=== PATIENT | female | born 1985 | race Caucasian/White ===

== ENCOUNTER → 2019-12-20 17:15 | Outpatient (CLI) | payer BC, SELFPAY ==
--- NOTE | ~2019-12-20 | XR_ITS ---
EXAMINATION: XR chest 2V EXAM DATE: 12/20/2019 17:30 INDICATION: Cough since September. TECHNIQUE: Frontal and lateral projections of the chest obtained and reviewed. Comparison is made to prior examination from 12/29/2018. FINDINGS: The lungs are clear. There are no pleural effusions. The cardiomediastinal silhouette is within normal limits. There is no pneumothorax suspected. The bones and soft tissues are unremarkab le. IMPRESSION: Unremarkable chest x-ray exam. Reviewed, dictated and finalized at location A. [employer]
== END ==
PROVIDERS: PCP Family Medicine; Visit Provider Family Medicine
DX: R05 Cough (principal)
CPT/HCPCS: 71046

== ENCOUNTER 2019-12-23 15:46 | Outpatient (CLI) | payer BC, SELFPAY ==
--- NOTE | ~2019-12-23 | CT_ITS ---
EXAMINATION: CT chest high resolution [facility] EXAM DATE: 12/23/2019 16:13 INDICATION: Cough for 3 months, chest pain and shortness of breath. TECHNIQUE: Spiral CT of the chest without contrast. HRCT. Axial, coronal and sagittal images were re viewed. Coronal maximum intensity pixel images of chest reviewed. The dose-length product (DLP) for this examination was 343.72 mGy-cm. The exposure was tailored according to patient size (auto mA ex posure control), and iterative reconstruction (ASIR) was used as additional dose reduction technique. There is no prior study for comparison. FINDINGS: No intralobular septal thickening on the HRCT. There is no focal acute air space disease. There are no pleural or pericardial effusions. Tracheobronchial tree is patent. There is no me diastinal, hilar or axillary lymphadenopathy. There is no pneumothorax. Heart normal in size. N o evidence of coronary arterial calcification. Upper abdomen is unremarkable. There is thoracic sp ondylosis without osteoblastic or osteolytic lesions identified. IMPRESSION: 1. Unremarkable CT chest examination. Reviewed, dictated and finalized at location A. AR RUNNER
== END 2019-12-23 15:47 | disposition home or self-care (01) ==
PROVIDERS: PCP Family Medicine; Visit Provider Family Medicine
DX: R05 Cough (principal)
CPT/HCPCS: 71250

== ENCOUNTER 2020-01-06 12:22 | Outpatient (CLI) | payer BC, SELFPAY ==
--- NOTE | 2020-01-13 12:36 | WPDPFTINT ---
PFT Interpretation PFT Interpretation: DOS: 01/06/2020 REQUESTING: Dr. Phyllis Kelley REASON FOR TESTING: Cough PULMONARY FUNCTION TESTS Results are reproducible. Spirometry: Normal FEV1 107% predicted, normal FVC, normal FEV1%, and no significant change with bronchodilator. Lung volumes: Total lung capacity normal 109%, normal RV, with increased in airway resistance 241% predicted. Diffusion: DLCO is normal 91%. Flow volume loop: Normal. IMPRESSION: Normal study. Mild increased in airway resistance. Lack of response to bronchodilator does not preclude use if clinically indicated. Karon Kimball MD
== END 2020-01-06 12:23 | disposition home or self-care (01) ==
PROVIDERS: PCP Family Medicine; Visit Provider Family Medicine
DX: R05 Cough (principal)
CPT/HCPCS: 94060; 94726; 94729

== ENCOUNTER 2020-05-08 01:07 | Outpatient (CLI) | payer BC, SELFPAY ==
[2020-05-08 19:25] LABS: SARS-CoV-2 RNA PCR Negative
== END 2020-05-08 01:08 | disposition home or self-care (01) ==
LOC: ANHCOVIDDT 01:07
PROVIDERS: PCP Family Medicine; Visit Provider Internal Medicine Gastroenterology
DX: Z01.812 Encounter for preprocedural laboratory examination (principal); Z11.59 Encounter for screening for other viral diseases
CPT/HCPCS: 87635; C9803; U0003

== ENCOUNTER 2020-05-10 00:48 | Day surgery (SDC) | payer BC, SELFPAY ==
[2020-05-03 13:00] VITALS: BMI 31.8
[2020-05-10] MEDS: LACTATED RINGERS 1,000 ML 150 ML IV CONT ×2 (07:27→08:24)
[2020-05-10 07:29] VITALS: BP 139/93; PULSE 97; RESP 17; TEMP 36.5; O2SAT 97; BMI 32.3
--- NOTE | 2020-05-10 07:40 | WPDGICN ---
Assessment and Plan Assessment and plan (1) Epigastric abdominal pain: Code(s): R10.13 - Epigastric pain Status: Acute Assessment and Plan: Patient complains of epigastric plain and bloating. She has been prescribed acid reducing medications with poor response. She only takes this medication as needed. Plan is to evaluate more thoroughly with EGD. Further recommendations will be given after endoscopy. Plan is to exclude GE reflux or gastritis as an etiology. (2) Dysphagia: Code(s): R13.10 - Dysphagia, unspecified Status: Acute Assessment and Plan: Patient reports difficulty swallowing. Food will occasionally catch in the upper portion of the chest on swallowing. This happens more with solids than liquids. Cannot exclude esophageal narrowing plan is for EGD to assess more thoroughly. GI Consult Note Consult date/time: 05/10/20 07:40 HPI: Isa Horn is a 34 year old female seen in evaluation at the request of Dr Phyllis Kelley. Patient reports a 1 year history of epigastric bloating. She also notes food catching the mid substernal portion of the chest. She states this happens more often with solid foods than liquids. She has never had regurgitation. She denies any choking. She has had no bleeding. She has had no weight loss. Family history is noncontributory. Intermittently she is taken acid suppressing medications but only on an as-needed basis. It is presumed that this was Prilosec. Review of Systems Review of Systems: All systems reviewed & are unremarkable except as noted in HPI and below PMFSH Past Medical History Medical History Bronchitis with asthma, subacute Dysphagia Eczema of both external ears Family History Family History Grandparent Depression Family history of bipolar disorder Family history of malignant neoplasm Sibling Depression Other Cerebrovascular accident Diabetes mellitus Family history of cardiovascular disease Family history of kidney disease Family history of thyroid disease Hypertension Social History Social History Smoking status: Never smoker Alcohol intake: never Meds Home Medications and Allergies Home Medications Medication Instructions Recorded Confirmed Type levothyroxine 112 mcg tablet 112 mcg PO DAILY #90 tablet 01/27/20 05/10/20 Rx escitalopram oxalate 10 mg tablet 10 mg PO DAILY #90 tablet 03/29/20 05/10/20 Rx albuterol sulfate 1 puff INHALATION QID PRN 05/03/20 05/10/20 History twueixcifpx-dauwnzkqy-rwweavtu 1 inh INHALATION DAILY 05/03/20 05/10/20 History [Trelegy Ellipta] Allergies Allergy/AdvReac Type Severity Reaction Status Date / Time No Known Allergies Allergy Verified 05/10/20 07:11 Vital Signs Vital Signs - 24 hr 05/10/20 07:29 Temperature 97.7 F Pulse Rate 97 Respiratory Rate 17 Blood Pressure 139/93 H Pulse Oximetry 97 Exam Narrative: Exam Narrative: Physical exam reveals patient to be alert. Vital signs stable. HEENT exam unremarkable. Lungs are clear to auscultation and percussion. Heart is without murmur or extra sounds. Abdominal exam bowel sounds are present soft nontender with no hepatosplenomegaly. Digital rectal exam is deferred at this time.
--- NOTE | 2020-05-10 08:09 | P.PNAN_ITS ---
Anes - Initial Pre Proc Eval Procedure: Operation Date: 05/10/20 08:30 Proposed Procedures p Esophagogastroduodenoscopy - Jesse Altamirano MD Date/Time: 05/10/20 08:09 Surgeon: Jesse Altamirano MD Pre Op Diagnosis: Dysphagia Patient Data Age: 34 Gender: F Height: 1.63 m Weight: 85.4 kg Last Vital Signs Temp 36.5 C 05/10/20 07:29 Pulse 97 05/10/20 07:29 Resp 17 05/10/20 07:29 BP 139/93 H 05/10/20 07:29 Pulse Ox 97 05/10/20 07:29 Allergies Allergy/AdvReac Type Severity Reaction Status Date / Time No Known Allergies Allergy Verified 05/10/20 07:11 Home Medications Medication Instructions Recorded Confirmed Type levothyroxine 112 mcg tablet 112 mcg PO DAILY #90 tablet 01/27/20 05/10/20 Rx escitalopram oxalate 10 mg tablet 10 mg PO DAILY #90 tablet 03/29/20 05/10/20 Rx albuterol sulfate 1 puff INHALATION QID PRN 05/03/20 05/10/20 History rrlrxteqndk-yqcnplmej-mcjmjujt 1 inh INHALATION DAILY 05/03/20 05/10/20 History [Trelegy Ellipta] Patient hx anesthesia problems: none Family hx anesthesia problems: none PMFSH Past Medical History Medical History (Updated 05/10/20 @ 08:10 by Jose Eduardo Blake MD) Bronchitis with asthma, subacute Dysphagia Eczema of both external ears GERD with esophagitis Obesity Recurrent mild major depressive disorder with anxiety Family History Family History Grandparent Depression Family history of bipolar disorder Family history of malignant neoplasm Sibling Depression Other Cerebrovascular accident Diabetes mellitus Family history of cardiovascular disease Family history of kidney disease Family history of thyroid disease Hypertension Social History Social History Smoking status: Never smoker Alcohol intake: never Anes - Eval Final PreProcedure Day of Procedure 05/10/20 08:09 Patient weight: obese Heart: regular rate and rhythm Lungs: clear to auscultation and normal air movement Airway: Mallampati scale class II Neurological: alert and oriented Last oral intake: >/= 8 hours ASA classification: II Emergent: no Anesthetic plan: proceed Anesthesia type and monitoring: general GIVS Informed Consent: The patient's anesthetic plan and its attendant risks and bene fits were discussed with the patient/family/POA. Questions were solicited and answers provided to the satisfaction of the patient/family/POA.
[2020-05-10] MEDS: BENZOCAINE (*SP) 60 ML SPRAY CAN (HURRICAINE) 1 SPRAY MUCOUS MEM (08:27)
[2020-05-10 08:38] VITALS: BP 119/76; PULSE 90; RESP 20; O2SAT 96
[2020-05-10 08:48] VITALS: BP 117/77; PULSE 84; RESP 19; O2SAT 97
[2020-05-10 08:58] VITALS: BP 115/75; PULSE 79; RESP 19; O2SAT 98
== END 2020-05-10 09:14 | disposition home or self-care (01) ==
PROVIDERS: PCP Family Medicine; Visit Provider Internal Medicine Gastroenterology
PROC: 0DJ08ZZ Inspection of Upper Intestinal Tract, Via Natural or Artificial Opening Endoscopic (ICD-10-PCS; CPT 43235; principal; 2020-05-10 08:30)
DX: K22.2 Esophageal obstruction (principal); K21.0 Gastro-esophageal reflux disease with esophagitis; J45.909 Unspecified asthma, uncomplicated
CPT/HCPCS: 43450; 43235; J2704; J7120

== ENCOUNTER 2020-10-25 15:19 | Outpatient (CLI) | payer BC, SELFPAY ==
--- NOTE | ~2020-10-25 | CT_ITS ---
EXAMINATION: CT abdomen pelvis w con EXAM DATE: 10/25/2020 16:03 INDICATION: R10.9 - Unspecified abdominal pain. TECHNIQUE: Spiral CT of the abdomen and pelvis was performed following intravenous injection of 100 m L Omnipaque 350. Axial, coronal and sagittal images were reviewed. The dose-length product (DLP) fo r this examination was 888.82 mGy-cm. The exposure was tailored according to patient size (auto mA e xposure control), and iterative reconstruction (ASIR) was used as additional dose reduction technique . There is no prior study for comparison. FINDINGS: There is hepatic steatosis without suspicious focal lesion identified. Spleen, adrenal glan ds, pancreas are unremarkable. Gallbladder is unremarkable. No biliary obstruction. Portal and spl enic veins are patent. Kidneys enhance symmetrically. There is no hydronephrosis. The uterus is u nremarkable. The bladder is unremarkable. There is no retroperitoneal or pelvic lymphadenopathy. The appendix is normal. The stomach and small bowel are unremarkable. There is expected amount of c olonic stool. No free intraperitoneal gas. The heart is normal in size. There are no pericardial or pleural effusions. The lung bases are unremarkable. The bones are unremarkable. IMPRESSION: 1. Hepatic steatosis. 2. Otherwise unremarkable CT abdomen pelvis examination. Reviewed, dictated and finalized at location A. INE UMBRELLA TIPPER
== END 2020-10-25 15:20 | disposition home or self-care (01) ==
PROVIDERS: PCP Family Medicine; Visit Provider Physician Assistant Medical
DX: R10.9 Unspecified abdominal pain (principal); K76.0 Fatty (change of) liver, not elsewhere classified
CPT/HCPCS: 74177; Q9967

== ENCOUNTER 2021-04-13 08:49 | Outpatient (CLI) | payer BC, SELFPAY | END 2021-04-13 08:50 | disposition home or self-care (01) | PROVIDERS: PCP Family Medicine; Visit Provider Nurse Practitioner Family | DX: R05 Cough (principal) | CPT/HCPCS: 87070; 87102; 87106; 87107; 87205; 87206 ==

== ENCOUNTER 2021-04-29 08:19 | Outpatient (CLI) | payer BC, SELFPAY ==
[2021-04-29 09:20] LABS: Cortisol Random 0.87 ug/dL
== END 2021-04-29 08:20 | disposition home or self-care (01) ==
LOC: ANHLAB 08:21
PROVIDERS: PCP Family Medicine; Visit Provider Internal Medicine Endocrinology, Diabetes & Metabolism
DX: E66.9 Obesity, unspecified (principal)
CPT/HCPCS: 36415; 82533

== ENCOUNTER 2021-05-21 12:39 | Outpatient (CLI) | payer BC, SELFPAY ==
--- NOTE | 2021-05-21 15:49 | P.METCHAL_ITS ---
Methacholine Procedure Perform Procedure Performed Methacholine Challenge Methacholine Challenge This is a methacholine challenge test. The test was performed and interpreted in accordance with the 1999 [place] [employer] guidelines. The test was performed with increasing doses of nebulized methacholine using a 2 minute tidal breathing protocol. The best post-methacholine FEV1 values were used to calculate the change from the post diluent FEV1. Findings: Baseline FEV1 2.89 L, 92% predicted. Post diluent FEV1 2.90 L Post 0.025 mg/ml methacholine FEV1 2.72 L, decreased 6% Post 0.25 mg/mL methacholine FEV1 2.67 L, decreased 8% Post 2.5 mg/mL methacholine FEV1 2.50 L, decreased 14% Post 10 mg/mL methacholine FEV1 2.05 L, decreased 29% Post albuterol nebulization FEV1 2.63 L Impression: The PC20 is 4.39 mg/ml which is categorized as mild bronchial hyperresponsiveness. There are no prior methacholine challenge studies for comparison
== END 2021-05-21 12:40 | disposition home or self-care (01) ==
PROVIDERS: PCP Family Medicine; Visit Provider Nurse Practitioner Family
DX: R06.02 Shortness of breath (principal); R05 Cough
CPT/HCPCS: 94070

== ENCOUNTER 2021-05-24 10:23 | Outpatient (CLI) | payer BC, SELFPAY ==
[2021-05-24 11:14] LABS: Immunoglobulin G 1411 mg/dL (700-1600)
[2021-05-28 15:57] LABS: Immunoglobulin G, Serum 1316 mg/dL (600-1640); Immunoglobulin G1 617 mg/dL (382-929); Immunoglobulin G2 538 mg/dL (241-700); Immunoglobulin G3 102 mg/dL (22-178); Immunoglobulin G4 26.6 mg/dL (4.0-86.0)
== END 2021-05-24 10:24 | disposition home or self-care (01) ==
LOC: ANHLAB 10:28
PROVIDERS: PCP Family Medicine; Visit Provider Nurse Practitioner Family
DX: B99.9 Unspecified infectious disease (principal)
CPT/HCPCS: 36415; 82784; 82787

== ENCOUNTER 2022-01-06 07:42 | Outpatient (CLI) | payer BC, SELFPAY ==
--- NOTE | 2022-01-08 12:26 | WPDHOMESLEEP ---
Sleep Study - Home Unattended Date of Study: 01/06/22 Ordering Provider: Karon Kimball MD Interpreting Provider: Sofia Gonsales, DO Home Sleep Study Type: Apnea Link Air Height: 1.63 m Weight: 84.822 kg Body Mass Index: 32.1 Neck Circumference (inches): 16.75 [place]mer: 14 Reason for Sleep Study Snoring, unrefreshing sleep, daytime hypersomnia. Sleep History The patient is a 36-year-old with type 2 diabetes, hypothyroidism, anxiety, depression, seasonal allergies and asthma that had a home sleep test ordered by her diabetes nurse for evaluation of sleep apnea. The patient rarely awakens from sleep short of breath. She occasionally awaken at night with heartburn, belching or cough. She constantly snores loud enough that others complain. She frequently has trouble sleeping when she has a cold. She occasionally wakes up gasping for air throughout the night. She constantly has breathing problems at night observed by herself or others. She occasionally sweats excessively at night. She denies having heart palpitations or irregular heartbeats during the night. She frequently falls asleep during the day but never while driving. She denies sleep paralysis, cataplexy and hypnagogic / hypnopompic hallucinations. She occasionally has trouble at work due to sleepiness. She denies having nightmares. She rarely remembers her dreams. She frequently has thoughts racing through her mind. She occasionally feels sad or depressed. She occasionally has anxiety. She occasionally has muscular tension. She occasionally notices parts of her body jerk. She occasionally kicks during the night. She rarely experiences crawling and aching feelings in her legs as well as leg pain during the night. She rarely grinds her teeth during sleep but never awakens with morning jaw pain. She denies being bothered by pain during the day and being awakened by pain during the night. She denies waking up feeling stiff in the morning. She rarely wakes up with sore achy muscles. She rarely wakes up pain in the neck, spine or other joints. She goes to bed at 10:00 p.m. on weekdays and 11:00 p.m. on weekends. It takes her 30-60 minutes to fall asleep. She wakes up 2-3 times throughout the night to use the restroom. She can take up to 30 minutes to fall back asleep. She wakes up at 6:00 a.m. on the weekdays and between 7 and 8:00 a.m. on the weekends. She typically gets 6 hours of sleep per night. He will standby for 25 minutes after waking up in the morning. She currently lives with her and 3 children. She does not consume any caffeinated beverages within 2 hours of bedtime. She does not engage in physical exercise before bedtime. She will occasionally watch television before falling asleep. She will take naps in the afternoon or the evening they are sometimes refreshing. The patient consumes less than a cup of caffeinated beverage per day. She denies tobacco, alcohol recreational drug use. PMFSH Past Medical History Medical History Abnormal findings on esophagogastroduodenoscopy (EGD) ..20 esophageal stricture/ bougied Autoimmune thyroiditis Bronchitis with asthma, subacute Chronic cough Dysphagia egd 05.10.20 bougied Eczema of both external ears GERD with esophagitis Obesity Recurrent mild major depressive disorder with anxiety Family History Family History Grandparent Depression Family history of bipolar disorder Family history of malignant neoplasm Sibling Depression Other Cerebrovascular accident Diabetes mellitus Family history of cardiovascular disease Family history of kidney disease Family history of thyroid disease Hypertension Social History Social History Alcohol intake: never Medications Home Medications Medication Instructions
[2022-01-08 12:38] VITALS: BMI 32.1
== END 2022-01-07 13:18 | disposition home or self-care (01) ==
LOC: ANHCSM 07:43
PROVIDERS: PCP Family Medicine; Visit Provider Internal Medicine Critical Care Medicine
DX: G47.33 Obstructive sleep apnea (adult) (pediatric) (principal)
CPT/HCPCS: 95806

== ENCOUNTER 2022-06-25 15:35 | Emergency (ER) | payer BC, SELFPAY ==
[2022-06-25 15:52] VITALS: BP 141/93; PULSE 113; RESP 16; TEMP 36.3; O2SAT 100
--- NOTE | 2022-06-25 16:11 | PC.NURSE ---
pt to intake desk and stated I cant wait any longer, I cant stay here. This rn advised pt that we are here 24/ if she feels like she wants to come back and be seen. Pt seen ambulatory with steady gait to exit via spouse pov. no distress noted at this time.
== END 2022-06-25 16:35 | disposition left against medical advice (07) ==
PROVIDERS: PCP Family Medicine
DX: U07.1 COVID-19 (principal); R53.83 Other fatigue
CPT/HCPCS: 99199